=== PATIENT | female | born 1970 | race American Indian/Alaskan Native ===

== ENCOUNTER 2021-07-26 23:09 | Emergency (ER) | payer OTHER ==
[2021-07-27] MEDS ORDERED: ASPIRIN 325 MG TAB PO ONE (00:30)
[2021-07-27 01:22] LABS: Basophils % (Auto) 0.3 % (0.0-1.8); Eosinophils % (Auto) 0.5 % (0.0-4.3); Hematocrit 40.8 % (30.3-42.9); Hemoglobin 13.5 gm/dl (10.1-14.3); Lymphocytes # (Auto) 1.2 K/mm3 (1.2-5.4); Lymphocytes % (Auto) 13.2 % (13.4-35.0); Mean Corpuscular HGB Conc 33 % (30-34); Mean Corpuscular Volume 90 fl (79-97); Monocytes # (Auto) 0.4 K/mm3 (0.0-0.8); Monocytes % (Auto) 4.7 % (0.0-7.3); Platelet Count 192 K/mm3 (140-440); Red Blood Count 4.53 M/mm3 (3.65-5.03); Red Cell Distribution Width 14.2 % (13.2-15.2)
[2021-07-27 01:33] LABS: Alanine Aminotransferase 15 units/L (7-56); Albumin 4.8 g/dL (3.9-5); Blood Urea Nitrogen 16 mg/dL (7-17); Calcium 10.3 mg/dL (8.4-10.2); Hemolysis Index 2
[2021-07-27 01:48] LABS: BUN/Creatinine Ratio 23
--- NOTE | 2021-07-27 02:00 | XRay Report ---
CHEST 2 VIEWS INDICATION / CLINICAL INFORMATION: CHEST PAIN. COMPARISON: None available. FINDINGS: SUPPORT DEVICES: None. HEART / MEDIASTINUM: No significant abnormality. LUNGS / PLEURA: No significant pulmonary or pleural abnormality. No pneumothorax. ADDITIONAL FINDINGS: No significant additional findings. IMPRESSION: 1. No acute findings. Signer Name: Shimon Diaz MD Signed: 07/27/2021 1:55 AM Workstation Name: [id number]
[2021-07-27] MEDS ORDERED: SODIUM CHLORIDE 0.9% 1000 ML 1,000 ML IV ONE (08:20)
[2021-07-27] MEDS ORDERED: PANTOPRAZOLE 40 MG INJ IV ONE (08:20)
[2021-07-27] MEDS ORDERED: MORPHINE 4 MG/1 ML INJ IV ONE (08:20)
[2021-07-27] MEDS ORDERED: ONDANSETRON 4 MG/2 ML INJ IV ONE (08:20)
--- NOTE | 2021-07-27 08:23 | Emergency Department Report ---
ED Abdominal Pain HPI - General Chief Complaint: Anxiety Stated Complaint: ANXIETY Time Seen by Provider: 07/27/21 08:09 Source: patient, EMS Mode of arrival: Stretcher Limitations: No Limitations - History of Present Illness Initial Comments: Patient is 51 years old female with no significant past medical history. Patient presented to the ER complaining of abdominal pain mainly to the left lower quadrant area associated with nausea and vomiting. Patient stated that pain started yesterday and is getting worse. Patient denied any hematemesis, melena, hematochezia. She denied any fever however stated that she is having some chills. Patient stated that she had a colonoscopy and endoscopy done on Saturday. She stated that the reason for this procedure is because she is having some difficulty swallowing. MD Complaint: abdominal pain -: days(s) Location: LLQ Migration to: no migration Severity: moderate Quality: sharp Associated Symptoms: nausea, vomiting - Related Data Allergies Allergy/AdvReac Type Severity Reaction Status Date / Time No Known Allergies Allergy Unverified 07/26/21 23:23 ED Review of Systems ROS: Stated complaint: ANXIETY Other details as noted in HPI Comment: All other systems reviewed and negative Constitutional: denies: chills, fever Cardiovascular: denies: chest pain Gastrointestinal: abdominal pain, nausea, vomiting. denies: diarrhea, constipation, hematemesis, melena, hematochezia ED Physical Exam - General Limitations: No Limitations General appearance: alert, in no apparent distress - Head Head exam: Present: atraumatic, normocephalic, normal inspection - ENT ENT exam: Present: mucous membranes dry - Neck Neck exam: Present: normal inspection, full ROM. Absent: tenderness, meningismus - Respiratory Respiratory exam: Present: normal lung sounds bilaterally - Cardiovascular Cardiovascular Exam: Present: regular rate, normal rhythm, normal heart sounds - GI/Abdominal GI/Abdominal exam: Present: soft, normal bowel sounds. Absent: distended, tenderness, guarding, rebound, rigid, organomegaly, mass, bruit, pulsatile mass, hernia - Extremities Exam Extremities exam: Present: normal inspection, full ROM, normal capillary refill. Absent: tenderness - Back Exam Back exam: Present: normal inspection, full ROM. Absent: CVA tenderness (R), CVA tenderness (L) - Neurological Exam Neurological exam: Present: alert, oriented X3, CN II-XII intact, normal gait, reflexes normal. Absent: motor sensory deficit - Psychiatric Psychiatric exam: Present: normal mood, anxious - Skin Skin exam: Present: warm, dry, intact, normal color ED Course Vital Signs 07/26/21 07/27/21 23:19 08:36 Temperature 97.8 F 98 F Pulse Rate 77 91 H Respiratory 16 18 Rate Blood Pressure 170/100 167/78 [Right] O2 Sat by Pulse 100 98 Oximetry ED Medical Decision Making - Lab Data Result diagrams: 07/27/21 00:44 07/27/21 00:44 - EKG Data -: EKG Interpreted by Me EKG shows normal: sinus rhythm Rate: normal - EKG Data Interpretation: no acute changes - Radiology Data Radiology results: report reviewed - Medical Decision Making Patient is 51 years old female with no significant past medical history. Starla neves presented to the ER complaining of abdominal pain mainly to the left lower quadrant area associated with nausea and vomiting. Patient stated that pain started yesterday and is getting worse. Patient denied any hematemesis, melena, hematochezia. She denied any fever however stated that she is having some chills. Patient stated that she had a colonoscopy and endoscopy done on Saturday. She stated that the reason for this procedure is because she is having some difficulty swallowing. Patient received morphine, Zofran, Protonix and normal saline. Patient stated that she is feeling much better. Labs reviewed and is unremarkable including a negative troponin x3. CT abdomen pelvis with IV contrast is unremarkable. Patient given prescription for tramadol, Zofran and Nexium and advised to follow-up with her primary doctor in the next 2 to 3 days and to return to the ER if she develop any new symptoms. Critical care attestation.: If time is entered above; I have spent that time in minutes in the direct care of this critically ill patient, excluding procedure time. ED Disposition Clinical Impression: Acute abdominal pain Disposition: HOME / SELF CARE / HOMELESS Is pt being admited?: No Condition: Stable Instructions: Abdominal Pain, Adult, [id number] Referrals: PRIMARY CARE, [Primary Care Provider] - 3-5 Days
--- NOTE | 2021-07-27 09:41 | Cat Scan Report ---
CT ABDOMEN AND PELVIS WITH CONTRAST INDICATION / CLINICAL INFORMATION: abdominal pain 100 ML OMNI 300. TECHNIQUE: Axial CT images were obtained through the abdomen and pelvis after IV contrast. All CT sc ans at this location are performed using CT dose reduction for ALARA by means of automated exposure c ontrol. COMPARISON: None available. FINDINGS: LOWER CHEST: No significant abnormality. LIVER: No significant abnormality. GALLBLADDER: Distended with questionable mild wall thickening. No significant adjacent inflammation. BILE DUCTS: No significant abnormality. PANCREAS: No significant abnormality. SPLEEN: No significant abnormality. ADRENALS: No significant abnormality. RIGHT KIDNEY / URETER: No significant abnormality. LEFT KIDNEY / URETER: No significant abnormality. STOMACH / SMALL BOWEL: No significant abnormality. COLON: No significant abnormality. APPENDIX: No significant abnormality. PERITONEUM: No free fluid. No free air. No fluid collection. LYMPH NODES: No significant adenopathy. VASCULAR STRUCTURES: No significant abnormality. URINARY BLADDER: No significant abnormality. REPRODUCTIVE ORGANS: Surgically absent. ADDITIONAL FINDINGS: Trace pelvic free fluid. SKELETAL SYSTEM: No significant abnormality. IMPRESSION: 1. Distended gallbladder with mild wall thickening. This could be better evaluated with ultrasound as clinically indicated. 2. Trace pelvic free fluid. Signer Name: Bala Weems MD Signed: 07/27/2021 9:37 AM Workstation Name: [employer]
--- NOTE | 2021-07-27 11:34 | Ultrasound Report ---
LIMITED RUQ ABDOMINAL ULTRASOUND INDICATION: Right upper quadrant pain. COMPARISON: No relevant prior imaging study available. FINDINGS: Pancreas: Visualized portions show no significant abnormality. Abdominal Aorta: No significant abnormality. IVC: No significant abnormality. Liver: The liver measures 13 cm in length. No significant abnormality. Normal hepatopedal blood flow in the main portal vein. Gallbladder: There are a few large shadowing gallstones with the largest measuring up to 3 cm. No wal l thickening or pericholecystic fluid. No abnormal distention. The technologist notes a positive Murp hy sign. Bile ducts: No significant abnormality. Common bile duct measures 5.5 mm. Right kidney: No significant abnormality visualized. Free fluid: None. Additional Findings: None. IMPRESSION: Cholelithiasis but no convincing findings of acute cholecystitis. The robotics technologist does no te a positive Parekh sign. Please correlate with the patient. Signer Name: Prasanna Alosno Jr, MD Signed: 07/27/2021 11:29 AM Workstation Name: [id number]
[2021-07-27] MEDS ORDERED: ALUM-MAG HYDROXIDE-SIMETHICONE 200-200-20MG/5ML ORAL LIQD 30 ML PO ONE (12:13)
[2021-07-27] MEDS ORDERED: LIDOCAINE VISCOUS 2% 15 ML ORAL LIQD PO ONE (12:13)
--- NOTE | 2021-07-27 12:15 | Electrocardiograph Report ---
[facility] Test Date: 2021-07-27 Test Time: 00:22:37 Pat Name: ZIGGY SCALES Department: Room: Gender: F [employer]: JERRI : 1970 Requested By: DORA PAN Order Number: [id number] Reading MD: Haylie Crystal Measurements Intervals [place] Rate: 72 P: 10 FL: 163 QRS: 50 QRSD: 79 T: -16 QT: 414 QTc: 453 Interpretive Statements Sinus rhythm Consider anteroseptal infarct No previous ECG available for comparison Electronically Signed On 07-27-2021 12:14:44 EDT by Haylie Crystal
[2021-07-27] MEDS ORDERED: hydrALAZINE 20 MG/1 ML INJ ONE (13:32)
[2021-07-27] MEDS ORDERED: hydrALAZINE 20 MG/1 ML INJ IV ONE (13:57)
[2021-07-27] MEDS ORDERED: MORPHINE 4 MG/1 ML INJ IM ONE (15:33)
[2021-07-27 16:09] VITALS: BP 151/94
== END 2021-07-27 16:00 | disposition home or self-care (01) ==
LOC: ED 23:09
DX: R10.32 Left lower quadrant pain (principal)
CPT/HCPCS: 36415; 71046; 74177; 76705; 80053; 84484; 85025; 93005; 96361; 96372; 96374; 96375; 99285; C9113; J0360; J2270; J2405; J7030; Q9967